=== PATIENT | female | born 1995 | race Caucasian/White ===

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

== ENCOUNTER → 2017-01-24 | Outpatient (CLI) | payer BC | LOC: COL.RAD 01-21 09:00 | DX: N83.202 Unspecified ovarian cyst, left side (principal) ==